=== PATIENT | male | born 1985 | race Caucasian/White ===

== ENCOUNTER → 2023-09-28 11:34 | Outpatient (BNVA) | payer BC, SELFPAY | PROVIDERS: Visit Provider Family Medicine Adult Medicine | DX: Z00.00 Encounter for general adult medical examination without abnormal findings (principal); G47.39 Other sleep apnea; Z83.3 Family history of diabetes mellitus; Z68.30 Body mass index [BMI] 30.0-30.9, adult | CPT/HCPCS: 80053; 80061; 83036; 85025 ==

== ENCOUNTER 2024-01-24 14:03 | Outpatient (CLI) | payer BC, SELFPAY | END 2024-01-24 14:04 | disposition home or self-care (01) | LOC: SLEEP 14:04 | PROVIDERS: Visit Provider Family Medicine Adult Medicine | DX: G47.39 Other sleep apnea (principal) | CPT/HCPCS: G0399 ==